=== PATIENT | male | born 1960 | race Caucasian/White ===

== ENCOUNTER 2024-03-08 08:44 | Emergency (ER) | payer OTHER ==
[~2024-03-08] VITALS: Ht 208.3 cm; Wt 79.5 kg
[2024-03-08 08:54] VITALS: TEMP 97.5
[2024-03-08] MEDS ORDERED: Ketorolac 30 MG/ML VIAL IV ONE (09:00)
[2024-03-08] MEDS ORDERED: NS 1,000 ML IV ONE (09:00)
[2024-03-08] MEDS ORDERED: fentaNYL 50 MCG/ML 2 ML VIAL IV ONE ×2 (09:00→10:15)
[2024-03-08 09:08] LABS: BASO # 0.1 K/mm3 (0.0-0.2); BASO % 0.4 % (0.0-2.0); EOS % 0.1 % (0.0-4.0); GRAN # 14.9 K/mm3 (1.4-6.5); GRAN % 79.7 % (42.2-75.2); HEMATOCRIT 44.5 % (42.0-52.0); LYMPH # 2.6 K/mm3 (1.2-3.4); MEAN CELL VOLUME 94 fl (80.0-100.0); MEAN CORPUSCULAR HEMOGLOBIN 32 pg (27-31); MEAN CORPUSCULAR HGB CONC 34 g/dl (33.0-37.0); MEAN PLATELET VOLUME 8.7 fl (7.4-10.4); MONO % 5.4 % (1.7-9.3); PLATELET COUNT 314 K/mm3 (130-400); RED BLOOD COUNT 4.72 M/mm3 (4.20-5.60); REDCELL DISTRIBUTION WIDTH-CV 12.3 % (11.5-14.5)
[2024-03-08] MEDS ORDERED: Ondansetron 4 MG/2 ML VIAL IV ONE (09:15)
[2024-03-08 09:35] LABS: ALBUMIN 4.2 g/dL (3.4-4.8); BILIRUBIN,TOTAL 0.6 mg/dL (0.2-1.2); C-REACTIVE PROTEIN 0.03 mg/dL (0.00-0.50); CALCIUM 10.1 mg/dL (8.4-10.2); CREATININE, serum 1.39 mg/dL (0.72-1.25); POTASSIUM 4.2 mEq/L (3.5-4.5); TOTAL PROTEIN 7.3 g/dl (6.2-8.1)
[2024-03-08] MEDS ORDERED: Iohexol 300 - 100 ML VIAL IV ONE (09:57)
[2024-03-08] MEDS ORDERED: NS 100 ML IV.SOLN. IY SCH (09:58)
[2024-03-08] MEDS ORDERED: BACTRIM DS 8001 TAB PO (11:29)
[2024-03-08] MEDS ORDERED: NORCO 325 MG-51 TAB PO (11:29)
[2024-03-08] MEDS ORDERED: FLOMAX 0.40.4 MG/CAP PO (11:29)
[2024-03-08 11:35] LABS: COLLECTION METHOD CLEAN CATCH
[2024-03-08 11:48] VITALS: BP 131/92; PULSE 70
[2024-03-08 12:03] LABS: URINE APPEARANCE Clear (CLEAR/HAZY); URINE COLOR Yellow (YELLOW)
[2024-03-08 12:04] LABS: URINE BLOOD 3+ (NEGATIVE); URINE GLUCOSE Negative (NEGATIVE); URINE KETONE Negative (NEGATIVE); URINE NITRATE Negative (NEGATIVE); URINE PROTEIN(semi-quant) Negative (NEGATIVE)
== END 2024-03-08 11:55 | disposition home or self-care (01) ==
LOC: COL.ER 08:44
PROVIDERS: Emergency Medicine
DX: N13.2 Hydronephrosis with renal and ureteral calculous obstruction (principal)
CPT/HCPCS: J1885; J2405; J3010; J7030; Q9967